=== PATIENT | male | born 1985 | race Caucasian/White ===

== ENCOUNTER 2018-12-16 19:30 | Emergency (ER) | payer SELFPAY ==
[2018-12-16] MEDS ORDERED: Albuterol/Ipratropium 3.0-0.5 MG/3 ML Neb Soln ONE (19:33)
[2018-12-16] MEDS ORDERED: methylPREDNISolone Sodium Succinate 125 MG/2 ML SDV IVPUSH ONE (19:34)
[2018-12-16] MEDS ORDERED: methylPREDNISolone Sodium Succinate 125 MG/2 ML SDV ONE (19:37)
[2018-12-16] MEDS: Albuterol/Ipratropium 3.0-0.5 MG/3 ML Neb Soln NEB ONE ×2 (19:37→19:41)
--- NOTE | 2018-12-16 19:38 | EDM.PDOC ---
ED HPI GENERAL MEDICAL PROBLEM - General Chief Complaint: Respiratory Problem Stated Complaint: SPOKE WITH NURSE Time Seen by Provider: 12/16/18 19:36 Source of Information: Reports: Patient History Limitations: Reports: No Limitations - History of Present Illness INITIAL COMMENTS - FREE TEXT/NARRATIVE: HISTORY AND PHYSICAL: History of present illness: Patient is a 33-year-old male who presents to the emergency room today with complaints of shortness of breath and chest pain. He states he was in the shower when he had a sudden onset of chest pain and shortness of breath, starting approximately 30 minutes prior to arrival. Reports he has bilateral lower extremity pain and swelling. Denies any recent injury, trauma or falls. Patient reports that he does not have any health problems, although he has not seen a primary care provider in several years. Does not take any routine medications. Patient denies any fever, chills, headache, change in vision, syncope or near syncope. Denies any chest pain, back pain, shortness of breath or cough. Denies any abdominal pain, nausea, vomiting, diarrhea, constipation or dysuria. Has not noted any blood in urine or stool. Patient has been eating and drinking appropriately. Review of systems: As per history of present illness and below otherwise all systems reviewed and negative. Past medical history: As per history of present illness and as reviewed below otherwise noncontributory. Surgical history: As per history of present illness and as reviewed below otherwise noncontributory. Social history: See social history for further information Family history: As per history of present illness and as reviewed below otherwise noncontributory. Physical exam: General: Well-developed and obese 33-year-old male. Alert and oriented. Nontoxic appearing and mildly uncomfortable related to his dyspnea. HEENT: Atraumatic, normocephalic, pupils equal and reactive bilaterally, negative for conjunctival pallor or scleral icterus, mucous membranes moist, TMs normal bilaterally, throat clear, neck supple, nontender, trachea midline. No drooling or trismus noted. No meningeal signs. No hot potato voice noted. Lungs: Poor air exchange noted with diminished lung sounds throughout, breath sounds equal bilaterally, chest nontender. Heart: S1S2, regular rate and rhythm without overt murmur Abdomen: Soft, obese, nontender. Negative for masses. Negative for costovertebral tenderness. Pelvis: Stable nontender. Genitourinary: Deferred. Rectal: Deferred. Skin: Intact, warm, dry. No lesions or rashes noted. Extremities: Atraumatic, moves all extremities per self without difficulty or deficits. Patient has moderate non-pitting edema to lower extremities bilaterally from greco downward. He is negative for cords or calf pain. Neurovascular unremarkable. Neuro: Awake, alert, oriented. Cranial nerves II through XII unremarkable. Cerebellum unremarkable. Motor and sensory unremarkable throughout. Exam nonfocal. Notes: Patient does have elevated blood pressure, he states he is unsure if he has any history of it as he has not seen a provider in several years. Patient does have elevated troponin at this time. Discussed with the patient about transfer for higher level of care. He is agreeable. Dr Quiroz, who is involved in his care, arranged transfer to [facility] in [place]. Dr Clarke agreed to accept patient. Patient will be transferred via flight Lab results pending, will give lovenox in case PE. Diagnostics: CBC, CMP, lactic, chest x-ray, ABG, EKG, d.dimer, Therapeutics: Metoprolol, Ativan, Zofran, morphine, 1 inch nitroglycerin paste, aspirin 324, Lovenox 150mg Impression: Chest Pain Hypertension Elevated Troponin Plan: Transfer to [facility] via Flight Definitive disposition and diagnosis as appropriate pending reevaluation and review of above. Bilateral Lower Leg Pain Score (Numeric/FACES): 10 - Related Data Allergies Allergy/AdvReac Type Severity Reaction Status Date / Time Penicillins Allergy Rash Verified 12/16/18 19:42 Home Meds: Home Meds . [No Known Home Meds] 12/16/18 [History] ED ROS GENERAL - Review of Systems Review Of Systems: ROS reveals no pertinent complaints other than HPI. ED EXAM, GENERAL - Physical Exam Exam: See Below (See dictation) Course - Vital Signs Last Recorded V/S: Last Vital Signs Temp 98 F 12/16/18 19:42 Pulse 107 H 12/16/18 19:53 Resp 25 H 12/16/18 19:53 BP 203/128 H 12/16/18 19:53 Pulse Ox 94 L 12/16/18 19:53 - Orders/Labs/Meds Orders: Active Orders 24 hr Category Date Time Status EKG Documentation Completion [RC] STAT Care 12/16/18 19:34 Active RT Aerosol Therapy [RC] ASDIRECTED Care 12/16/18 19:34 Active Chest 1V Frontal [CR] Stat Exams 12/16/18 19:34 Taken BLOOD GAS ARTERIAL [BG] Stat Lab 12/16/18 19:34 Ordered DD [D-DIMER QUANTITATIVE] [COAG] Stat Lab 12/16/18 20:10 Ordered INR,PT,PROTHROMBIN TIME [COAG] Stat Lab 12/16/18 20:05 Ordered Labs: Laboratory Tests 12/16/18 12/16/18 12/16/18 Range/Units 19:35 19:35 19:35 WBC 7.60 (4.0-11.0) K/uL RBC 5.56 (4.50-5.90) M/uL Hgb 17.8 H (13.0-17.0) g/dL Hct 52.7 H (38.0-50.0) % MCV 94.8 (80.0-98.0) fL MCH 32.0 (27.0-32.0) pg MCHC 33.8 (31.0-37.0) g/dL RDW Std Deviation 51.3 (28.0-62.0) fl RDW Coeff of Millicent 15 (11.0-15.0) % Plt Count 215 (150-400) K/uL MPV 9.30 (7.40-12.00) fL Neut % (Auto) 52.3 (48.0-80.0) % Lymph % (Auto) 37.9 (16.0-40.0) % [place] % (Auto) 7.1 (0.0-15.0) % Eos % (Auto) 1.8 (0.0-7.0) % Baso % (Auto) 0.9 (0.0-1.5) % Neut # (Auto) 4.0 (1.4-5.7) K/uL Lymph # (Auto) 2.9 H (0.6-2.4) K/uL [place] # (Auto) 0.5 (0.0-0.8) K/uL Eos # (Auto) 0.1 (0.0-0.7) K/uL Baso # (Auto) 0.1 (0.0-0.1) K/uL Nucleated RBC % 0.0 /100WBC Nucleated RBCs # 0 K/uL Lactate 1.8 (0.20-2.00) mmol/L Sodium 140 (136-148) mmol/L Potassium 3.6 (3.5-5.1) mmol/L Chloride 101 (98-107) mmol/L Carbon Dioxide 31.1 (21.0-32.0) mmol/L BUN 8 (7.0-18.0) mg/dL Creatinine 0.8 (0.8-1.3) mg/dL Est Cr Clr Drug Dosing TNP Estimated GFR (MDRD) > 60.0 ml/min Glucose 102 (74-106) mg/dL Calcium 8.6 (8.5-10.1) mg/dL Total Bilirubin 0.3 (0.2-1.0) mg/dL AST 51 H (15-37) IU/L ALT 66 H (14-63) IU/L Alkaline Phosphatase 76 (46-116) U/L Troponin I 0.102 H* (0.000-0.056) ng/mL Total Protein 7.9 (6.4-8.2) g/dL Albumin 3.4 (3.4-5.0) g/dL Globulin 4.5 H (2.6-4.0) g/dL Albumin/Globulin Ratio 0.8 L (0.9-1.6) Meds: Medications Discontinued Medications Generic Name Dose Route Start Last Admin Trade Name Freq PRN Reason Stop Dose Admin Albuterol/Ipratropium 6 ml 12/16/18 19:34 12/16/18 19:41 Duoneb 3.0-0.5 Mg/3 Ml NEB 12/16/18 19:35 3 ml ONETIME ONE Administration Albuterol/Ipratropium Confirm 12/16/18 19:33 12/16/18 19:40 Duoneb 3.0-0.5 Mg/3 Ml Administered 12/16/18 19:34 Not Given Dose 6 ml .ROUTE .STK-MED ONE Enoxaparin Sodium 150 mg 12/16/18 20:09 Lovenox SUBCUT 12/16/18 20:10 ONETIME ONE Ketorolac Tromethamine 30 mg 12/16/18 19:54 12/16/18 19:58 Toradol IVPUSH 12/16/18 19:55 30 mg ONETIME ONE Administration Methylprednisolone Sodium Succinate 125 mg 12/16/18 19:34 12/16/18 19:38 Solu-Medrol IVPUSH 12/16/18 19:35 125 mg ONETIME ONE Administration Methylprednisolone Sodium Succinate Confirm 12/16/18 19:37 12/16/18 19:40 Solu-Medrol Administered 12/16/18 19:38 Not Given Dose 125 mg .ROUTE .STK-MED ONE Metoprolol Tartrate 5 mg 12/16/18 20:05 Lopressor IVPUSH 12/16/18 20:06 ONETIME ONE Morphine Sulfate 2 mg 12/16/18 20:09 Morphine IVPUSH 12/16/18 20:10 ONETIME ONE Nitroglycerin 1 gm 12/16/18 20:05 Nitro-Bid 2% TOP 12/16/18 20:06 ONETIME ONE Ondansetron HCl 4 mg 12/16/18 20:09 Zofran IVPUSH 12/16/18 20:10 ONETIME ONE Departure - Departure Time of Disposition: 20:26 Disposition: DC/Tfer to Acute Hospital 02 Clinical Impression: Chest pain, rule out acute myocardial infarction, Elevated troponin Hypertension Qualifiers: Hypertension type: unspecified Qualified Code(s): I10 - Essential (primary) hypertension - Discharge Information Forms: ED Department Discharge - My Orders Last 24 Hours: My Active Orders 12/16/18 19:34 EKG Documentation Completion [RC] STAT RT Aerosol Therapy [RC] ASDIRECTED Chest 1V Frontal [CR] Stat BLOOD GAS ARTERIAL [BG] Stat 12/16/18 20:05 INR,PT,PROTHROMBIN TIME [COAG] Stat 12/16/18 20:10 DD [D-DIMER QUANTITATIVE] [COAG] Stat - Assessment/Plan Last 24 Hours: My Active Orders 12/16/18 19:34 EKG Documentation Completion [RC] STAT RT Aerosol Therapy [RC] ASDIRECTED Chest 1V Frontal [CR] Stat BLOOD GAS ARTERIAL [BG] Stat 12/16/18 20:05 INR,PT,PROTHROMBIN TIME [COAG] Stat 12/16/18 20:10 DD [D-DIMER QUANTITATIVE] [COAG] Stat
[2018-12-16] MEDS ORDERED: Ketorolac 30 MG/ML SDV IVPUSH ONE (19:54)
[2018-12-16 20:01] LABS: CHLORIDE,CL 101 mmol/L (98-107); SODIUM,NA 140 mmol/L (136-148)
[2018-12-16] MEDS ORDERED: Metoprolol Tartrate 5 MG/5 ML SDV IVPUSH ONE ×3 (20:05→20:41)
[2018-12-16] MEDS ORDERED: Nitroglycerin 2% Oint 1 GM UD Packet TOP ONE (20:05)
[2018-12-16] MEDS ORDERED: Ondansetron 4 MG/2 ML SDV IVPUSH ONE (20:09)
[2018-12-16] MEDS ORDERED: Morphine 2 MG/ML Syringe IVPUSH ONE (20:09)
[2018-12-16] MEDS ORDERED: Enoxaparin 150 MG/1 ML Syringe SUBCUT ONE (20:09)
--- NOTE | 2018-12-16 21:12 | CR ---
INDICATION: SOB TECHNIQUE: Chest 1 view. COMPARISON: None. FINDINGS: Cardiovascular and mediastinum: Heart size and vasculature are normal in caliber and appearance. Mediastinum is within normal limits. Lungs and pleural space: Lungs are clear. No sign of infiltrate or mass. No sign of pleural effusion. No pneumothorax. Bones and soft tissues: No significant findings. IMPRESSION: Unremarkable chest. Dictated by: Jorge Fair MD @ 12/16/2018 21:10:29 (Electronically Signed)
== END 2018-12-16 21:12 ==
LOC: MW.ED 19:30
DX: I10 Essential (primary) hypertension (principal); R07.9 Chest pain, unspecified; Z79.899 Other long term (current) drug therapy; Z88.0 Allergy status to penicillin
CPT/HCPCS: 36415; 36600; 71045; 80053; 82803; 83605; 84484; 85025; 85379; 85610; 93005; 94640; 96372; 96374; 96375; 99285; A9270; J1650; J1885; J2270; J2405; J2930; J3490; J7620-GY